=== PATIENT | female | born 1970 | race Caucasian/White ===

== ENCOUNTER 2017-12-01 19:04 | Emergency (ER) | payer MEDICAID ==
[2017-12-01 19:15] VITALS: RESP 18
[2017-12-01 19:40] LABS: PLATELET COUNT 258 10^3/uL (150-400)
--- NOTE | 2017-12-01 19:43 | EDPHY ---
General Narrative: CHIEF COMPLAINT: Abdominal pain HISTORY OF PRESENT ILLNESS: Patient complains of 3 days history of bilateral lower quadrant abdominal pain. This is [id number]. It is described as an achy pain that radiates up "into my kidney area." No trauma or injury. No predictable exacerbating factors. Mild improvement with rest and Advil. No fever. Some nausea and diarrhea but no vomiting. No trauma or injury. No vaginal pain, bleeding or discharge. No pelvic pain. No back pain. No urinary complaints, but she does say "now that I think about it, it might be a UTI." No other associated complaints or modifying factors. REVIEW OF SYSTEMS: Ten systems reviewed and are negative unless otherwise noted in the HPI PCP: Dr. Andrea SPECIALISTS: None PAST MEDICAL HISTORY: Denies PAST SURGICAL HISTORY: No surgical history SOCIAL HISTORY: Nonsmoker. No drug or alcohol use. Works as a therapist. Lives in [place] FAMILY HISTORY: Noncontributory EXAMINATION General Appearance: Alert, no distress Head: normocephalic, atraumatic Eyes: Pupils equal and round, no conjunctival pallor or injection ENT, Mouth: Mucous membranes moist Neck: Normal inspection, supple, non-tender Respiratory: Lungs are clear to auscultation. No wheezing, rhonchi or crackles Cardiovascular: Regular rate and rhythm. No murmur Gastrointestinal: Abdomen is soft and nondistended. No tympany rigidity. No guarding. Negative Rovsing. Negative make burning. Mild tenderness in the lower quadrants. Mild CVA tenderness bilaterally. Back: non-tender, no bony abnormalities Neurological: A&O, nonfocal, normal gait Skin: Warm and dry, no rash. No petechiae or purpura Extremities: Nontender, no pedal edema Psychiatric: Mood and affect normal DIFFERENTIAL DIAGNOSES: Including but not limited to enteritis, colitis, ovarian cysts, renal colic, ureteral stone, appendicitis MDM: 7:30 p.m. Lower abdominal pain and bilateral flank pain of 3 days duration. Abdominal exam is benign. Vital signs were well within normal limits. I have ordered laboratory studies. IV has been placed. Do not feel she warrants IV fluid at this time as she is not vomiting and tolerating liquids by mouth. She is resting comfortably in no acute distress. Urine sample is been requested as well. 8:05 p.m. CBC and chemistry unremarkable. Urinalysis shows 1+ bacteriuria. I have ordered a urine culture. I have re-evaluated the patient at this time. We discussed the negative laboratory studies. We discussed possibility of imaging studies. She is requesting ultrasound she feels this may be related to ovarian cyst. She says that she did not mention that earlier but was thinking about it and failed to mention it. I do feel this is a reasonable study for her. I do not feel she warrants of pelvic exam at this time as she has no vaginal discharge bleeding. 9:05 p.m. Ultrasound is at bedside 9:35 p.m. Notified by radiologist Dr. Horowitz. Ultrasound of the pelvis reveals a complex right ovarian cysts as documented. No other acute findings. 9:50 p.m. Patient re-evaluated. She is resting comfortably with reports of mild pain. We discussed the ultrasound findings. We discussed laboratory studies. We discussed [facility] or the on- call gynecologic physician. We discussed ED precautions, anti-inflammatories and short course of pain medication. I have answered all her questions and she is comfortable this plan. She is discharged home stable condition. SUPERVISION: Patient was independently examined, but I discussed the case with my secondary supervising physician Dr. Lomas - History Smoking Status: Never smoked - Objective Vital Signs: Initial Vital Signs Temperature (C) 98.1 F 12/01/17 19:12 Heart Rate 65 12/01/17 19:12 Respiratory Rate 18 12/01/17 19:12 Blood Pressure 114/57 L 12/01/17 19:12 O2 Sat (%) 100 12/01/17 19:12 O2 Delivery Mode Room Air Allergies/Adverse Reactions: Penicillins Allergy (Verified 12/01/17 19:15) Home Medications: Medication Instructions Recorded Hydrocodone/APAP 5/325 [[place] 1 - 2 tab PO Q4H PRN #11 tab 12/01/17 5/325 (*)] Laboratory Results: Laboratory Results 12/01/17 19:20 12/01/17 19:20 12/01/17 12/01/17 12/01/17 19:38 19:20 19:20 WBC RBC Hgb Hct MCV MCH MCHC RDW Plt Count MPV Neut % (Auto) Lymph % (Auto) [place] % (Auto) Eos % (Auto) Baso % (Auto) Nucleat RBC Rel Count Absolute Neuts (auto) Absolute Lymphs (auto) Absolute Monos (auto) Absolute Eos (auto) Absolute Basos (auto) Absolute Nucleated RBC Immature Gran % Immature Gran # Sodium 138 mEq/L mEq/L (135-145) Potassium 3.8 mEq/L mEq/L (3.5-5.2) Chloride 101 mEq/L mEq/L (97-110) Carbon Dioxide 26 mEq/l mEq/l (22-31) Anion Gap 11 mEq/L mEq/L (8-16) BUN 21 mg/dL mg/dL (7-23) Creatinine 0.7 mg/dL mg/dL (0.6-1.0) Estimated GFR > 60 Glucose 87 mg/dL mg/dL (70-100) Calcium 9.2 mg/dL mg/dL (8.5-10.4) Total Bilirubin 0.3 mg/dL mg/dL (0.1-1.4) Conjugated Bilirubin 0.1 mg/dL mg/dL (0.0-0.5) Unconjugated Bilirubin 0.2 mg/dL mg/dL (0.0-1.1) AST 26 IU/L IU/L (14-46) ALT 26 IU/L IU/L (9-52) Alkaline Phosphatase 44 IU/L IU/L (38-126) Total Protein 7.5 g/dL g/dL (6.3-8.2) Albumin 4.4 g/dL g/dL (3.5-5.0) Lipase 72 IU/L IU/L (23-300) Beta HCG, Qual NEGATIVE Urine Color PALE YELLOW Urine Appearance CLEAR Urine pH 5.0 (5.0-7.5) Ur Specific [place] 1.010 (1.002-1.030) Urine Protein NEGATIVE (NEGATIVE) Urine Ketones NEGATIVE (NEGATIVE) Urine Blood NEGATIVE (NEGATIVE) Urine Nitrate NEGATIVE (NEGATIVE) Urine Bilirubin NEGATIVE (NEGATIVE) Urine Urobilinogen NEGATIVE EU EU (0.2-1.0) Ur Leukocyte Esterase NEGATIVE (NEGATIVE) Urine RBC 1-3 /hpf /hpf (0-3) Urine WBC 1-3 /hpf /hpf (0-3) Ur Epithelial Cells TRACE /lpf /lpf (NONE-1+) Urine Bacteria 1+ /hpf H /hpf (NONE SEEN) Urine Mucus TRACE /lpf /lpf (NONE-1+) Urine Glucose NEGATIVE (NEGATIVE) 12/01/17 19:20 WBC 8.75 10^3/uL 10^3/uL (3.80-9.50) RBC 4.14 10^6/uL L 10^6/uL (4.18-5.33) Hgb 12.7 g/dL g/dL (12.6-16.3) Hct 38.7 % % (38.0-47.0) MCV 93.5 fL fL (81.5-99.8) MCH 30.7 pg pg (27.9-34.1) MCHC 32.8 g/dL g/dL (32.4-36.7) RDW 12.4 % % (11.5-15.2) Plt Count 258 10^3/uL 10^3/uL (150-400) MPV 9.9 fL fL (8.7-11.7) Neut % (Auto) 61.9 % % (39.3-74.2) Lymph % (Auto) 28.9 % % (15.0-45.0) Jewell % (Auto) 6.7 % % (4.5-13.0) Eos % (Auto) 1.6 % % (0.6-7.6) Baso % (Auto) 0.7 % % (0.3-1.7) Nucleat RBC Rel Count 0.0 % % (0.0-0.2) Absolute Neuts (auto) 5.41 10^3/uL 10^3/uL (1.70-6.50) Absolute Lymphs (auto) 2.53 10^3/uL 10^3/uL (1.00-3.00) Absolute Monos (auto) 0.59 10^3/uL 10^3/uL (0.30-0.80) Absolute Eos (auto) 0.14 10^3/uL 10^3/uL (0.03-0.40) Absolute Basos (auto) 0.06 10^3/uL 10^3/uL (0.02-0.10) Absolute Nucleated RBC 0.00 10^3/uL 10^3/uL (0-0.01) Immature Gran % 0.2 % % (0.0-1.1) Immature Gran # 0.02 10^3/uL 10^3/uL (0.00-0.10) Sodium Potassium Chloride Carbon Dioxide Anion Gap BUN Creatinine Estimated GFR Glucose Calcium Total Bilirubin Conjugated Bilirubin Unconjugated Bilirubin AST ALT Alkaline Phosphatase Total Protein Albumin Lipase Beta HCG, Qual Urine Color Urine Appearance Urine pH Ur Specific [place] Urine Protein Urine Ketones Urine Blood Urine Nitrate Urine Bilirubin Urine Urobilinogen Ur Leukocyte Esterase Urine RBC Urine WBC Ur Epithelial Cells Urine Bacteria Urine Mucus Urine Glucose Departure - Departure Disposition: Home, Routine, Self-Care Clinical Impression: Right ovarian cyst Condition: Good Instructions: Ovarian Cyst (ED) Additional Instructions: 1. Medication as prescribed as needed 2. Follow up with the on-call reimbursement analyst as needed 3. ED precautions as discussed Referrals: NAGI ANDREA [Primary Care Provider] - As per Instructions Maryuri Floyd MD [Medical Doctor] - As per Instructions Prescriptions: Hydrocodone/APAP 5/325 [[place] 5/325 (*)] 1 - 2 tab PO Q4H PRN #11 tab PRN Reason: Pain, Moderate
[2017-12-01 22:20] VITALS: BP 122/74; PULSE 71; TEMP 98.2; O2SAT 98
== END 2017-12-01 22:20 | disposition home or self-care (01) ==
DX: N83.201 Unspecified ovarian cyst, right side (principal)

== ENCOUNTER 2018-10-01 12:13 | Emergency (ER) | payer MEDICAID ==
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
[2018-10-01 14:49] LABS: PLATELET COUNT 254 10^3/uL (150-400)
[2018-10-01 17:03] VITALS: BP 113/73
[2018-10-04 12:36] LABS: GC AMPLIFICATION GENPROBE NEGATIVE (NEGATIVE)
== END 2018-10-01 16:55 | disposition home or self-care (01) ==
DX: R10.2 Pelvic and perineal pain (principal)

== ENCOUNTER → 2019-04-01 | Outpatient (CLI) | payer MEDICAID | LOC: GIMAGING 11:05 ==